=== PATIENT | female | born 1945 | race Caucasian/White ===

== ENCOUNTER 2021-02-19 05:57 | Emergency (ER) | payer MEDICARE, MEDICAID ==
[~2021-02-19] VITALS: Ht 157.5 cm; Wt 65.0 kg
--- NOTE | 2021-02-19 06:07 | NUR ---
PT BIBA FOR SHORTNESS OF BREATH, PT HAS BEEN EXPERIENCING SOB FOR OVER A WEEK NOW, PT GIVEN 1 ALBUTEROL TREATMENT AND A DUONEB EN ROUTE TO HOSPITAL, PT CURRENTLY MARCOS VICTOR MD ALREADY ASSESSED PT AT THIS TIME
[2021-02-19] MEDS ORDERED: PLEASE ENTER ALLERGIES MC SCH (06:30)
[2021-02-19] MEDS ORDERED: PLEASE ENTER HEIGHT AND WEIGHT MC SCH (06:30)
[2021-02-19] MEDS ORDERED: SODIUM CHLORIDE FLUSH 10ML SYR IVF ONE (06:30)
[2021-02-19 06:39] LABS: BASOPHILS % (AUTO) 1 % (0-1); EOSINOPHILS % (AUTO) 2 % (1-7); LYMPHOCYTES % (AUTO) 26 % (22-44); MEAN CORPUSCULAR HEMOGLOBIN 37.2 pg (27.0-34.8); MEAN CORPUSCULAR HGB CONC 34.7 g/dL (32.4-35.8); MEAN PLATELET VOLUME 8.8 fL (7.4-10.4); MONOCYTES % (AUTO) 6 % (2-9); NEUTROPHILS % (AUTO) 65 % (42-75); PLATELET COUNT 50 x10^3/uL (130-400); RED BLOOD COUNT 3.11 x10^6/uL (3.82-5.3)
[2021-02-19 06:49] LABS: ALBUMIN 2.9 g/dL (3.4-5.0); ANION GAP 9 mmol/L (5-15); CALCIUM 8.4 mg/dL (8.5-10.1); CHLORIDE 106 mmol/L (98-107)
[2021-02-19 06:55] LABS: ALANINE AMINOTRANSFERASE 60 U/L (12-78); ALKALINE PHOSPHATASE 144 U/L (45-117); BILIRUBIN,TOTAL 1.8 mg/dL (0.2-1.0); TOTAL PROTEIN 8.2 g/dL (6.4-8.2); TROPONIN I 0.015 ng/mL (0.000-0.045)
--- NOTE | 2021-02-19 07:00 | NUR ---
BEDSIDE REPORT RECEIVED FROM SPENCER MAC
[2021-02-19 07:13] LABS: <PLATELET ESTIMATE> DECREASED; <PLT MORPHOLOGY> NORMAL PLT MORPH; ANISOCYTOSIS 1+
[2021-02-19 08:12] VITALS: BP 152/83
--- NOTE | 2021-02-19 08:18 | NUR ---
PT UP TO BATHROOM, AMBULATES BACK TO ROOM. VS MEASUREMENT RECORDED.
--- NOTE | 2021-02-19 09:08 | NUR ---
pt educated on discharge, verbalized understanding. ambulatory to dc with steady gait.
== END 2021-02-19 09:10 | disposition home or self-care (01) ==
LOC: ED 07:16
DX: J44.1 Chronic obstructive pulmonary disease with (acute) exacerbation (principal); F17.200 Nicotine dependence, unspecified, uncomplicated; R94.31 Abnormal electrocardiogram [ECG] [EKG]
CPT/HCPCS: 36415; 71045; 80053; 83880; 84484; 85025; 93005; 99285; J7512